=== PATIENT | female | born 1980 | race Two or more races ===

== ENCOUNTER → 2021-06-22 | Outpatient (CLI) | payer MEDICAID ==
[~2021-06-22] MED LIST: [UNRECOGNIZED DRUG - CODE]
== END | disposition home or self-care (01) ==
LOC: Rad HDHVI 13:11
PROVIDERS: ATTEND Internal Medicine Cardiovascular Disease
DX: I10 Essential (primary) hypertension (principal)
CPT/HCPCS: 93306

== ENCOUNTER → 2021-12-27 | Outpatient (CLI) | payer MEDICAID | END | disposition home or self-care (01) | LOC: Rad HDHVI 14:53 | PROVIDERS: ATTEND Internal Medicine Cardiovascular Disease | DX: I11.0 Hypertensive heart disease with heart failure (principal); I50.9 Heart failure, unspecified | CPT/HCPCS: 93306 ==

== ENCOUNTER → 2023-04-03 | Outpatient (CLI) | payer MEDICAID | END | disposition home or self-care (01) | LOC: Rad HDHVI 13:03 | PROVIDERS: ATTEND Internal Medicine Cardiovascular Disease | DX: I10 Essential (primary) hypertension (principal); E78.5 Hyperlipidemia, unspecified | CPT/HCPCS: 93306 ==

== ENCOUNTER 2023-08-14 19:00 | Emergency (ER) | payer MEDICAID ==
[~2023-08-14] VITALS: Ht 157.5 cm; Wt 66.1 kg
[2023-08-14 19:30] VITALS: BP 144/90; PULSE 84; RESP 16; O2SAT 99
== END 2023-08-15 00:07 | disposition home or self-care (01) ==
LOC: ER 19:00
DX: R07.89 Other chest pain (principal)
CPT/HCPCS: 71045

== ENCOUNTER → 2024-10-10 | Outpatient (CLI) | payer MEDICAID ==
[~2024-10-10] VITALS: Ht 157.5 cm; Wt 70.3 kg
--- NOTE | 2024-10-14 11:34 | DVHSR ---
APPROVED REPORT Exam: Nuclear Stress Test Indication: Screening for CAD Ht: 5 ft 2 in Wt: 155 lbs BSA: 1.72 m2 HR: 72 bpm BP: 129/87 mmHg BMI: 28.34 Rhythm: NSR Medical History Medical History: Hypothyroidism Medications: Levothyroxine Allergies: No known drug allergies Cardiac Risk Factors: Family Hx of CAD Stress Test Details Stress Test: Exercise stress testing was performed using a Jeremy protocol. HR Resting HR: 72 bpmMax Heart Rate (APMHR): 174.036060 bpm Max HR Achieved: 151 bpmTarget HR (85% APMHR): 147.946828 bpm % of APMHR: 86.78 Recovery HR: 91 bpm HR response to stress: Normal HR response to stress BP Resting BP: 129/87 mmHg Max BP: 188/103 mmHg Recovery BP: 130/93 mmHg BP response to stress: Exaggerated response ECG Resting ECG: Sinus Rhythm Stress ECG: Sinus Tachycardia Arrhythmia: None Recovery ECG: Sinus Rhythm Clinical Reason for Termination: Target HR achieved Stress Symptoms: None Exercise duration: 6 min 19 sec Exercise capacity: 7.0 METs Stress ECG Conclusion NON ISCHEMIC CLINICAL RESPONSE NON ISCHEMIC ECG RESPONSE NO REVERSIBLE PERFUSION DEFECTS NOTED DURING STRESS EF >55% LESS THAN 10 10% LIKELIHOOD FOR STRESS INDUCED ISCHENIA NM EXAM: Myocardial Perfusion REST/STRESS Imaging Protocol: Rest Tc-99m/Stress Tc-99m 1 day Resting Data Rest SPECT myocardial perfusion imaging was performed in supine position 30 minutes following the int ravenous injection of 10.98 mCi of Tc-99m Sestamibi. Time of rest injection: 914 Date: 10/10/2024 Time of rest imagin Date: 10/10/2024 Administration Route: IV Administration Site: Right AC Exercise Stress At peak stress, the patient was injected intravenously with 28.7 mCi of Tc-99m Sestamibi. Time of stress injection: 1009 Date: 10/10/2024 Time of stress imagin Date: 10/10/2024 Administration Route: IV Administration Site: Right AC Heart Rate at time of stress injection: 151 bpm. Patient continued to exercise for 1 minute(s). Gated Stress SPECT was performed 15 minutes after stress injection. The images were gated to evaluate regional wall motion and calculate left ventricular ejection fracti on. Comments Cardiolite injection at 5 minutes, 18 seconds into test. Study Data Post stress, the left ventricular ejection was 58%.. Nuclear Conclusion NON ISCHEMIC CLINICAL RESPONSE NON ISCHEMIC ECG RESPONSE NO REVERSIBLE PERFUSION DEFECTS NOTED DURING STRESS EF >55% LESS THAN 10 10% LIKELIHOOD FOR STRESS INDUCED ISCHENIA
== END | disposition home or self-care (01) ==
LOC: Rad HDHVI 09:06
PROVIDERS: ATTEND Internal Medicine Cardiovascular Disease
DX: Z13.6 Encounter for screening for cardiovascular disorders (principal); R00.0 Tachycardia, unspecified; R94.31 Abnormal electrocardiogram [ECG] [EKG]; I11.0 Hypertensive heart disease with heart failure; I50.43 Acute on chronic combined systolic (congestive) and diastolic (congestive) heart failure; I25.2 Old myocardial infarction; I42.0 Dilated cardiomyopathy; E78.00 Pure hypercholesterolemia, unspecified; R07.89 Other chest pain; T86.99 Other complications of unspecified transplanted organ and tissue; E03.9 Hypothyroidism, unspecified; Z68.28 Body mass index [BMI] 28.0-28.9, adult; Z82.49 Family history of ischemic heart disease and other diseases of the circulatory system
CPT/HCPCS: 78452; 93017; A9500; 96374

== ENCOUNTER → 2024-10-14 | Outpatient (CLI) | payer MEDICAID | END | disposition home or self-care (01) | LOC: Rad HDHVI 13:06 | PROVIDERS: ATTEND Internal Medicine Cardiovascular Disease | DX: I34.0 Nonrheumatic mitral (valve) insufficiency (principal); I10 Essential (primary) hypertension | CPT/HCPCS: 93306 ==